=== PATIENT | female | born 1950 | race Caucasian/White ===

== ENCOUNTER → 2018-10-26 | Outpatient (CLI) | payer MEDICARE, OTHER ==
[~2018-10-26] MED LIST: ASPI81CH PO; B Complete1 EACH PO; COQ1050 MG PO; LISI20 PO; METF500 PO; SIMV5 PO; [UNRECOGNIZED DRUG - REMARK]
== END ==
LOC: LAB SHORT 10:20 → PLD 10:20
DX: C44.311 Basal cell carcinoma of skin of nose (principal)
CPT/HCPCS: 88305

== ENCOUNTER → 2018-11-09 | Outpatient (CLI) | payer MEDICARE, OTHER | END | disposition home or self-care (01) | LOC: PLD 08:28 → LAB SHORT 08:28 | DX: C44.311 Basal cell carcinoma of skin of nose (principal) | CPT/HCPCS: 88305 ==

== ENCOUNTER → 2018-12-26 | Outpatient (CLI) | payer MEDICARE, OTHER | END | disposition home or self-care (01) | LOC: LAB EV 13:22 → LAB SHORT 13:22 | DX: N39.0 Urinary tract infection, site not specified (principal) | CPT/HCPCS: 87077; 87086; 87186 ==

== ENCOUNTER 2019-02-02 11:29 | Emergency (ER) | payer MEDICARE, OTHER ==
[~2019-02-02] VITALS: Ht 157.5 cm; Wt 81.7 kg
[~2019-02-02 11:29] MED LIST changes: +Norco 5-325 Ta1 EACH PO
[2019-02-02 12:11] LABS: BASOPHILS ABSOLUTE AUTO 0.06 K/mm3 (0.00-0.23); BASOPHILS PERCENT AUTO 1 % (0-2); EOSINOPHILS ABSOLUTE AUTO 0.09 K/mm3 (0.00-0.68); EOSINOPHILS PERCENT AUTO 1 % (0-6); Hemoglobin 12.4 g/dL (11.5-16.0); IMMATURE GRAN ABSOLUTE AUTO 0.02 K/mm3 (0.00-0.10); IMMATURE GRAN PERCENT AUTO 0 % (0-1); LYMPHOCYTES ABSOLUTE AUTO 2.12 K/mm3 (0.84-5.20); LYMPHOCYTES PERCENT AUTO 25 % (21-46); MONOCYTES ABSOLUTE AUTO 0.67 K/mm3 (0.16-1.47); MONOCYTES PERCENT AUTO 8 % (4-13); Mean Corpuscular HGB 29.5 pg (26.0-34.0); Mean Corpuscular HGB Conc 31.8 g/dL (31.5-36.5); Mean Corpuscular Volume 93 fL (80-100); Mean Platelet Volume 11.4 fL (9.1-12.4); NEUTROPHILS ABSOLUTE AUTO 5.63 K/mm3 (1.96-9.15); NEUTROPHILS PERCENT AUTO 66 % (41-73); Platelet Count 283 K/mm3 (150-400); RDW Coefficient Variation 12.6 % (11.7-14.2); RDW Standard Deviation 42.6 fL (35.1-46.3); White Blood Cell Count 8.59 K/mm3 (4.00-11.30)
[2019-02-02 12:33] LABS: Albumin, Blood 3.4 g/dL (3.4-5.0); Albumin/Globulin Ratio 0.7 (0.8-1.8); Bilirubin, Total 1.2 mg/dL (0.1-1.0); Calcium, Blood 10.3 mg/dL (8.5-10.1); Creatinine, Blood 1.29 mg/dL (0.40-1.00); Globulin, Blood 4.6 g/dL (2.2-4.0); Magnesium, Blood 1.5 mg/dL (1.6-2.4); Potassium, Blood 4.1 mmol/L (3.5-5.5)
[2019-02-02 12:39] LABS: Source, Urine Clean Catch
[2019-02-02 12:42] LABS: Bilirubin, Urine Neg (Neg); Blood, Urine Neg (Neg); Glucose Qualitative, Urine Neg (Neg); Ketones, Urine 1+ (Neg); Leukocyte Esterase, Urine Neg (Neg); Nitrite, Urine Neg (Neg); Protein, Urine Neg (Neg); Urobilinogen, Urine NORM (Normal)
[2019-02-02 12:54] LABS: Appearance, Urine Clear (Clear); Color, Urine Yellow (P-Yellow)
[2019-02-02] MEDS ORDERED: ONDA4ODT MM (15:38)
[2019-02-02] MEDS ORDERED: Miralax17 GM PO (15:38)
[2019-02-02] MEDS ORDERED: Flonase 0.05% N16 GM (15:38)
== END 2019-02-02 15:50 | disposition home or self-care (01) ==
LOC: ER 11:29
PROVIDERS: Emergency Medicine; Physician Assistant
DX: J32.9 Chronic sinusitis, unspecified (principal); K59.00 Constipation, unspecified; E11.9 Type 2 diabetes mellitus without complications; Z79.84 Long term (current) use of oral hypoglycemic drugs; Z79.899 Other long term (current) drug therapy
CPT/HCPCS: 36415; 71046; 74019; 80053; 81003; 83735; 85025; 93005; 93010; 96361; 96374; 99284-25; J2405; J7030; J7120

== ENCOUNTER → 2019-07-23 | Outpatient (CLI) | payer MEDICARE, OTHER ==
[~2019-07-23] MED LIST changes: +Flonase 0.05% N16 GM; +Miralax17 GM PO; +ONDA4ODT MM
== END | disposition home or self-care (01) ==
LOC: LAB SHORT 09:00 → LAB EV 09:00
DX: N39.0 Urinary tract infection, site not specified (principal)
CPT/HCPCS: 87077; 87086; 87147; 87186

== ENCOUNTER 2019-10-15 07:40 | Day surgery (SDC) | payer MEDICARE, OTHER ==
[~2019-10-15] VITALS: Ht 157.5 cm; Wt 79.3 kg
[2019-10-15] MEDS ORDERED: LOSA50 PO (08:13)
== END 2019-10-15 09:48 | disposition home or self-care (01) ==
LOC: ORSCSDS 07:40
PROVIDERS: Surgery
PROC: 0DBN8ZX Excision of Sigmoid Colon, Via Natural or Artificial Opening Endoscopic, Diagnostic (ICD-10-PCS; principal; 2019-10-15 09:00)
DX: Z12.11 Encounter for screening for malignant neoplasm of colon (principal); Z86.010 Personal history of colon polyps; D12.5 Benign neoplasm of sigmoid colon; K57.30 Diverticulosis of large intestine without perforation or abscess without bleeding; E11.9 Type 2 diabetes mellitus without complications; I10 Essential (primary) hypertension; Z79.84 Long term (current) use of oral hypoglycemic drugs; Z79.899 Other long term (current) drug therapy; E78.5 Hyperlipidemia, unspecified; Z79.82 Long term (current) use of aspirin
CPT/HCPCS: 82947; 88305; J2704; J7120

== ENCOUNTER → 2020-04-09 | Outpatient (CLI) | payer MEDICARE, OTHER ==
[~2020-04-09] MED LIST changes: +LOSA50 PO
== END | disposition home or self-care (01) ==
LOC: LAB EV 16:23 → LAB SHORT 16:23
DX: N39.0 Urinary tract infection, site not specified (principal)
CPT/HCPCS: 87077; 87086; 87186

== ENCOUNTER 2021-09-05 06:45 | Day surgery (SDC) | payer MEDICARE, OTHER ==
[~2021-09-05] VITALS: Ht 157.5 cm; Wt 79.5 kg
[~2021-09-05 06:45] MED LIST changes: +CALCIUM 500 MG1 EAC2 PO
[2021-09-05] MEDS ORDERED: Simvastatin20 MG PO (07:09)
== END 2021-09-05 09:05 | disposition home or self-care (01) ==
LOC: ORSCSDS 06:45
PROVIDERS: Orthopaedic Surgery
PROC: 0QPG04Z Removal of Internal Fixation Device from Right Tibia, Open Approach (ICD-10-PCS; principal; 2021-09-05 08:00)
DX: T84.9XXA Unspecified complication of internal orthopedic prosthetic device, implant and graft, initial encounter (principal); E11.9 Type 2 diabetes mellitus without complications; I10 Essential (primary) hypertension; Z79.84 Long term (current) use of oral hypoglycemic drugs; Z79.899 Other long term (current) drug therapy
CPT/HCPCS: 82947; J0171; J0690; J1100; J2250; J2370; J2405; J2704; J3010; J7120

== ENCOUNTER 2021-09-10 06:05 | Inpatient (IN) | payer MEDICARE, OTHER ==
[~2021-09-10] VITALS: Ht 152.4 cm; Wt 79.6 kg
[~2021-09-10 06:05] MED LIST changes: +Simvastatin20 MG PO
[2021-09-10] MEDS ORDERED: CYAN500 PO (06:29)
--- NOTE | 2021-09-10 07:26 | NUR ---
Ambulatory in Day Surgery History, Chart, Medications and Allergies reviewed before start of procedure.Patient confirms NPO status and agrees with scheduled surgery. Patient reports completing Chlorhexadine shower X2 prior to admission to hospital.Surgical site prepped with 2% Chlorhexidine cloth wipe.
--- NOTE | 2021-09-10 12:30 | NUR ---
PT ARRIVED TO UNIT FROM PACU IN BED. AQUACEL TO R SHOULDER CDI. RUE IMMOBILIZER IN PLACE. POLAR PACK TO R SHOULDER. PT DENIES PAIN, N/V OR SOB. ABLE TO WIGGLE FINGERS, CAP REFILL <3 SECONDS. 02 SATS 100% ON 3L NC. VSS. ORIENTED PT TO USE OF CALL LIGHT, WHICH IS IN REACH. TXA COMPLETED PRIOR TO COMING TO FLOOR. PAS ON.
--- NOTE | 2021-09-10 15:57 | NUR ---
PT AND OT IN TO SEE PT. PT AWAKE AND ALERT. SPOUSE AT BEDSIDE.
--- NOTE | 2021-09-10 16:55 | NUR ---
SUMMARY PT BECAME LIGHTHEADED AND NAUSEATED WHEN GOT OOB W/THERAPY. REPORTS HAS IMPROVED NOW BACK TO BED. DENIES ANY PAIN. IMMOBILIZER IN PLACE. PT VOIDED WHEN UP W/THERAPY. IV ABX INFUSING PER ORDERS. CALL LIGHT IN REACH.
--- NOTE | 2021-09-10 19:04 | NUR ---
REPORT GIVEN TO ONCOMING SHIFT.
[2021-09-11 04:24] LABS: BASOPHILS PERCENT AUTO 0 % (0-2); EOSINOPHILS PERCENT AUTO 0 % (0-6); Hematocrit 32.7 % (33.0-51.0); Hemoglobin 10.8 g/dL (11.5-16.0); IMMATURE GRAN ABSOLUTE AUTO 0.05 K/mm3 (0.00-0.10); IMMATURE GRAN PERCENT AUTO 0 % (0-1); LYMPHOCYTES ABSOLUTE AUTO 1.55 K/mm3 (0.84-5.20); LYMPHOCYTES PERCENT AUTO 11 % (21-46); MONOCYTES ABSOLUTE AUTO 1.25 K/mm3 (0.16-1.47); MONOCYTES PERCENT AUTO 9 % (4-13); Mean Corpuscular HGB 29.8 pg (26.0-34.0); Mean Corpuscular Volume 90 fL (80-100); NEUTROPHILS ABSOLUTE AUTO 10.83 K/mm3 (1.96-9.15); NEUTROPHILS PERCENT AUTO 79 % (41-73); Platelet Count 206 K/mm3 (150-400); RDW Coefficient Variation 13.7 % (11.7-14.2); RDW Standard Deviation 44.7 fL (35.1-46.3); Red Blood Cell Count 3.63 M/mm3 (3.80-5.20); White Blood Cell Count 13.68 K/mm3 (4.00-11.30)
[2021-09-11 04:34] LABS: Bun/Creatinine Ratio 21.1 (12.0-20.0); Calcium, Blood 8.6 mg/dL (8.5-10.1); Creatinine, Blood 1.33 mg/dL (0.40-1.00); Magnesium, Blood 1.4 mg/dL (1.6-2.4); Potassium, Blood 4.7 mmol/L (3.5-5.5)
--- NOTE | 2021-09-11 05:38 | NUR ---
PT IS A/OX3. ABLE TO MAKE HER NEEDS KNOWN. NO EVENTS OVERNIGHT. PT IS S/P RT TOTAL SHOULDER ARTHROPLASTY. RUE IN IMMOBILIZER. GOOD CSM'S. ABLE TO WIGGLE RT HAND/FINGERS, WARM TO TOUCH. DENIES ANY NUMBNESS/TINGLING TO RUE/HAND. COMPLIANT W/NWB TO RUE. AQUACEL TO RT SHOULDER CDI. BANDAID TO RT BANDAID CDI (HAD HARDWARE REMOVED FROM KNEE 09/05/21). POLAR PACK IN PLACE TO RT SHOULDER. PAIN MANAGED W/SCHEDULED & PRN MEDS PER EMAR. PT DID AMBULATE FROM BED TO BATHROOM W/1PA. DID C/O SOME DIZZINESS. MEDICATED X2 FOR C/O NAUSEA, NO EMESIS.
--- NOTE | 2021-09-11 09:30 | NUR ---
therapy in with pt
[2021-09-11] MEDS ORDERED: MASOPHEN500 MG PO (10:51)
[2021-09-11] MEDS ORDERED: OXAYDO5 M1 PO (10:52)
--- NOTE | 2021-09-11 11:40 | NUR ---
DISCHARGED PT CLEARED THERAPY. REVIEWED DC INSTRUCTIONS W/PT AND SPOUSE; VERBALIZED UNDERSTANDING. DC'D IV, CATHETER INTACT. PT LEFT UNIT IN WC ACCOMPANIED BY SPOUSE. HAD POLAR PACK/POT FISHER, DC PAPERWORK, AND PERSONAL POSSESSIONS IN HAND.
== END 2021-09-11 11:46 | disposition home or self-care (01) | DRG 483 ==
LOC: SURS 06:05 → PRE IP 07:30 → SURS 12:13
PROVIDERS: ADMIT Orthopaedic Surgery
PROC: 0RRJ0JZ Replacement of Right Shoulder Joint with Synthetic Substitute, Open Approach (ICD-10-PCS; principal; 2021-09-10 07:30)
DX: M19.011 Primary osteoarthritis, right shoulder (principal); M87.00 Idiopathic aseptic necrosis of unspecified bone; Z28.89 Immunization not carried out for other reason
CPT/HCPCS: 36415; 73030; 80048; 82947; 83735; 85025; 97110; 97116; 97162; 97166; 97530; 97535; A9270; C1776; J0171; J0690; J0735; J1885; J2405; J2765; J2795; J7120

== ENCOUNTER → 2023-03-26 | Outpatient (CLI) | payer MEDICARE, OTHER ==
[~2023-03-26] MED LIST changes: +CYAN500 PO; +MASOPHEN500 MG PO; +OXAYDO5 M1 PO
== END | disposition home or self-care (01) ==
LOC: PLD 14:46 → LAB SHORT 14:46
DX: C44.311 Basal cell carcinoma of skin of nose (principal)
CPT/HCPCS: 88305

== ENCOUNTER 2024-12-16 06:30 | Day surgery (SDC) | payer MEDICARE, OTHER ==
[~2024-12-16] VITALS: Ht 157.5 cm; Wt 76.4 kg
[2024-12-16] MEDS ORDERED: B-COMPLEX WITH1 EACH (06:58)
[2024-12-16] MEDS ORDERED: Lactated Ringer's 1,000 ML IV ONE ×2 (07:32→07:42)
[2024-12-16] MEDS ORDERED: propofoL 50 ML IV ONE (07:32)
[2024-12-16 09:03] VITALS: BP 111/70
== END 2024-12-16 08:58 | disposition home or self-care (01) ==
LOC: ORSCSDS 06:30
PROVIDERS: Surgery
PROC: 0DBK8ZX Excision of Ascending Colon, Via Natural or Artificial Opening Endoscopic, Diagnostic (ICD-10-PCS; principal; 2024-12-16 08:00)
PROC: 0DBL8ZX Excision of Transverse Colon, Via Natural or Artificial Opening Endoscopic, Diagnostic (ICD-10-PCS; principal; 2024-12-16 08:00)
DX: Z12.11 Encounter for screening for malignant neoplasm of colon (principal); Z86.0101 Personal history of adenomatous and serrated colon polyps; D12.2 Benign neoplasm of ascending colon; D12.3 Benign neoplasm of transverse colon; K57.90 Diverticulosis of intestine, part unspecified, without perforation or abscess without bleeding; E78.5 Hyperlipidemia, unspecified; I10 Essential (primary) hypertension; E11.22 Type 2 diabetes mellitus with diabetic chronic kidney disease; I12.9 Hypertensive chronic kidney disease with stage 1 through stage 4 chronic kidney disease, or unspecified chronic kidney disease; N18.31 Chronic kidney disease, stage 3a; Z79.84 Long term (current) use of oral hypoglycemic drugs; Z79.899 Other long term (current) drug therapy
CPT/HCPCS: 82947; 88305; J2704; J7120